=== PATIENT | male | born 1995 | race American Indian/Alaskan Native ===

== ENCOUNTER 2017-09-13 14:34 | Emergency (ER) | payer SELFPAY ==
--- NOTE | 2017-09-13 23:38 | Emergency Department Report ---
ED Laceration HPI - HPI Chief Complaint: Wound/Laceration Stated Complaint: FALL/BUSTED LIP Time Seen by Provider: 09/13/17 23:05 Occurred When: Yesterday Severity: mild (no pain) Tetanus Status: Up to Date (2 years ago) Laceration Symptoms: No Foreign Body Sensation, No Numbness, No Weakness, No Pain Other History: Patient reports that he fell and cut his lower lip yesterday night. Patient with delayed wound. Denies any pain. Tetanus vaccine is up-to- date. Patient stable. Denies any missing tooth. ED Review of Systems ROS: Stated complaint: FALL/BUSTED LIP Other details as noted in HPI Comment: All other systems reviewed and negative Constitutional: no symptoms reported ENT: denies: ear pain, epistaxis, congestion Respiratory: no symptoms reported Cardiovascular: denies: chest pain, palpitations, dyspnea on exertion, edema, syncope, paroxysmal nocturnal dyspnea Gastrointestinal: denies: abdominal pain, nausea, vomiting Musculoskeletal: denies: back pain, joint swelling, arthralgia, myalgia Skin: other (reports cut to his lower lip where he fell last night) Neurological: denies: headache, numbness, paresthesias, abnormal gait ED Past Medical Hx - Past Medical History Previous Medical History?: No - Surgical History Past Surgical History?: No - Family History Family history: no significant - Social History Smoking Status: Never Smoker Substance Use Type: None - Medications Home Medications: Home Medications Medication Instructions Recorded Confirmed Last Taken Type Cephalexin [Keflex] 500 mg PO Q8HR 7 Days #21 cap 09/14/17 Unknown Rx Laceration Physical Exam - Exam General: Vital signs noted. No distress. Alert and acting appropriately. This is a 22-year-old male well-nourished well-developed in no acute distress. Head: Normocephalic atraumatic. No contusion, abrasion or laceration to head. Mouth: Noted small laceration that already healing in with scab to outer lower lip. No signs of infection noted. Noted inner lower lip with small laceration which is superficial. Mouth is moist, tongue is normal, no dental trauma, uvula is midline and oral airways patent. Patient able to open and close his mouth and a difficulties Lungs: Clear to auscultation bilaterally, no rhonchi wheezes or rales Extremity: No clubbing, cyanosis or edema +2 pulses to all extremities. No neurovascular compromise Psych: Normal mood and behavior. Wound Length (cm): 0 (0.1 cm laceration that sorry scabbed over.) Laceration Location: Other (lower lip externally. Inner lower lip with small superficial laceration) Laceration Exam: Yes Normal Distal CMS, No Foreign Body, No Exposed Tendon, Vessel, or Nerve, No Tendon Injury ED Course Vital Signs 09/13/17 16:04 Temperature 98.8 F Pulse Rate 64 Respiratory 16 Rate Blood Pressure 113/70 O2 Sat by Pulse 100 Oximetry - Reevaluation(s) Reevaluation #1: 09/13/17 23:58 Laceration to the outer lip cleansed with normal saline and Neosporin ointment placed inside. - Procedure Description Procedures done: Wound to lip cleansed with iodine and ns and NS oint placed. Patient with delayed treatment. TD vaccine 2016. ED Medical Decision Making - Medical Decision Making ED course: status post fall with laceration to his outer lower lip that started healing. Patient with laceration to the inner lower lip and outer lip with delayed treatment. Area is cleansed with normal saline and Neosporin ointment placed inside. I discussed the patient I'll place him on antibiotic but we cannot repair laceration to his outer lip became is it has been greater than 15 hours. Areas already scabbed over and hemostasis. Patient does not appear to be happy with information given. I explained to him that the wound is already healing and therefore I take the scab off and so the ear up he runs a risk of having an infection and the wound is very small and already healing so he needs to keep area clean and dry and I will put him on antibiotic. Tetanus vaccine is up-to-date. Patient discharged home in stable condition with prescription for Keflex and to follow-up with behavioral specialist in 2-3 days Critical care attestation.: If time is entered above; I have spent that time in minutes in the direct care of this critically ill patient, excluding procedure time. ED Disposition Clinical Impression: Laceration of lip with delay in treatment Qualifiers: Encounter type: initial encounter Qualified Code(s): S01.511A - Laceration without foreign body of lip, initial encounter Accidental fall Qualifiers: Encounter type: initial encounter Qualified Code(s): W19.XXXA - Unspecified fall, initial encounter Disposition: DC-01 TO HOME OR SELFCARE Is pt being admited?: No Does the pt Need Aspirin: No Condition: Stable Instructions: Laceration (ED), Acute Wound Care (ED) Additional Instructions: Please keep affected area clean and dry Follow-up with behavioral specialist/primary care physician in 2-3 days if he do not have either you can follow-up with outside Medical Center. We are not able to suture your wound to the lip because you presented to the emergency room to light and timeframe does not allow me to repair laceration. The area is scabbed over. Take antibiotic as prescribed. Please keep affected ear clean and dry and follow discharge instructions on acute wound care Prescriptions: Cephalexin [Keflex] 500 mg PO Q8HR 7 Days #21 cap Referrals: JOAQUIN VAZQUEZ MD [Primary Care Provider] - 09/14/17 MICHAEL ASKEW MD [Staff Physician] - 09/14/17 [facility] [Outside] - 09/14/17 Forms: Accompanied Note, Work/School Release Form(ED)
[2017-09-13] MEDS ORDERED: TRIPLE ANTIBIOTIC TP ONE (23:52)
[2017-09-14 05:57] VITALS: BP 103/60
== END 2017-09-14 00:13 | disposition home or self-care (01) ==
LOC: ED 14:34
DX: S01.511A Laceration without foreign body of lip, initial encounter (principal); W18.30XA Fall on same level, unspecified, initial encounter; Y93.89 Activity, other specified; Y92.89 Other specified places as the place of occurrence of the external cause; Y99.8 Other external cause status
CPT/HCPCS: 99282; A6250

== ENCOUNTER 2019-10-14 06:02 | Emergency (ER) | payer SELFPAY ==
[2019-10-14 06:16] VITALS: BP 124/79
--- NOTE | 2019-10-14 07:51 | Emergency Department Report ---
Chief Complaint: Back Pain/Injury Stated Complaint: SOB BACK PAIN LT ARM PAIN LUMPS ON NECK AND GROIN Time Seen by Provider: 10/14/19 07:25 - HPI History of Present Illness: This 24-year-old male who presents the ED complaining of lymph nodes enlargement that has been going on for the past year. Patient states that last November he was evaluated by some other ER had a biopsy of the lymph nodes done. Patient states that it was benign and was told that the lymph nodes were benign and not malignant. Patient states that the lymph nodes gotten bigger and they are not reducing in size. Patient denies any pain, fever, nausea vomiting, abdominal pain, chest pain or any other medical problems. Patient states that the lymph nodes are swelling on the back of his neck and one in the groin area. - ROS Review of Systems: As noted in HPI - Exam Vital Signs: Vital Signs 10/14/19 06:10 Temperature 98.3 F Pulse Rate 62 Respiratory 18 Rate Blood Pressure 124/79 O2 Sat by Pulse 98 Oximetry Physical Exam: GENERAL: Alert and oriented x3, no apparent distress, Normal Gait, atraumatic. HEAD: Head is normocephalic and a-traumatic. MOUTH:Mouth is well hydrated and without lesions. Tonsils nonerythematous or swollen, Uvula midline, Tongue not elevated. NECK: Supple. Non edematous, No thyromegaly. No C-spine tenderness. Posterior cervical bilateral lymph nodes swelling, nontender to palpation NEUROLOGIC: The patient is cooperative with no focal neurologic deficits. SKIN: Warm and dry, No lesions, No ulceration or induration present. MSE screening note: Focused history and physical exam performed. Due to findings the following was ordered: ED Medical Decision Making - Medical Decision Making 24-year-old healthy looking male presents with enlarged lymph nodes for the past year. Patient stated that he had lymph nodes biopsied last year November which were normal. Discussed with the patient that he needs to follow-up with a specialist who will do a biopsy and possibly have them surgically removed with the common problem. I discussed with the patient that he will be given referrals for the right resources to be able to better manage his concerns for his lymph nodes. Vital signs are normal patient is in no acute distress or respiratory distress. ED Disposition for MSE Clinical Impression: Lymph node enlargement Disposition: Z-07 MED SCREENING EXAM-LEFT Is pt being admited?: No Does the pt Need Aspirin: No Condition: Stable Instructions: Lymphedema (ED), Lymphangitis (ED) Additional Instructions: Make sure to follow up with the primary care physician as discussed. Take all your medications as you've been prescribed. If you have any worsening symptoms or develop new symptoms please return to ED immediately. Referrals: PRIMARY CARE, [Primary Care Provider] - 3-5 Days [facility] [Provider Group] - 3-5 Days [facility] [Provider Group] - 3-5 Days [facility] [Provider Group] - 3-5 Days [facility] [Provider Group] - 3-5 Days [facility] [Provider Group] - 3-5 Days [facility] [Provider Group] - 3-5 Days [facility] [Provider Group] - 3-5 Days [facility] [Outside] - 3-5 Days [facility] [Outside] - 3-5 Days Forms: Work/School Release Form(ED) Time of Disposition: 07:51
== END 2019-10-14 07:59 | disposition left against medical advice (07) ==
LOC: ED 06:02
DX: R59.9 Enlarged lymph nodes, unspecified (principal)
CPT/HCPCS: 99282

== ENCOUNTER 2020-04-17 14:41 | Observation (INO) | payer OTHER ==
--- NOTE | 2020-04-17 17:06 | Event Note ---
ED Screening Note Date of service: 04/17/20 Time: 17:05 ED Screening Note: Patient here for admission for secondary syphilis Was seen here last night, however declined admission due to having to take his mother to work HIV positive not currently on medication Labs performed last night This initial assessment/diagnostic orders/clinical plan/treatment(s) is/are subject to change based on patients health status, clinical progression and re- assessment by fellow clinical providers in the ED. Further treatment and workup at subsequent clinical providers discretion. Patient/guardian urged not to elope from the ED as their condition may be serious if not clinically assessed and managed. Initial orders include:
[2020-04-17] MEDS ORDERED: diphenhydrAMINE 50 MG/ML VIAL IV ONE (23:36)
--- NOTE | 2020-04-17 23:40 | Emergency Department Report ---
- General Chief complaint: Skin Rash Stated complaint: RASH Time Seen by Provider: 04/17/20 17:03 Source: patient Mode of arrival: Ambulatory Limitations: No Limitations - History of Present Illness Initial comments: 24-year-old male HIV positive not currently on antiretrovirals presents to the hospital complaining of worsening generalized rash despite treatment for syphilis. Patient has had a rash x2 weeks but did not receive a diagnosis of syphilis until April 16. Patient presented to [facility] on April 12 and had blood drawn on 04/12 that resulted positive for syphilis antibody IgG and IgM as well as reactive RPR. Patient received the results 04/16 but he received a shot of IM penicillin on April 12 while results were pending. Patient now comes in stating that despite receiving treatment the rash is spreading to additional body areas and becoming more irritated and burning feeling. Patient was diagnosed with HIV early 2018 and started HIV medication. Patient has been noncompliant with this medication since the end of 2018. He denies diagnosis of full-blown AIDS but does not know his current CD4 count. He has an appointment scheduled with the HIV doctor to initiate care and treatment for April 18. Patient was seen here yesterday with recommendation for admission. Patient declined admission at that time because he had some personal affairs to handle. He returned to the ER today for admission and treatment. He complains burning itching pain to several areas of his rash on his back pain. He denies fever, headache, dysuria, penile discharge or dysuria. - Related Data Previous Rx's Medication Instructions Recorded Last Taken Type Acetaminophen [Acetaminophen TAB] 650 mg PO Q4H PRN tablet 04/18/20 Unknown Rx Allergies Allergy/AdvReac Type Severity Reaction Status Date / Time No Known Allergies Allergy Verified 09/13/17 16:07 Abscess Boil HPI - HPI Chief Complaint: Skin Rash Stated Complaint: RASH Time Seen by Provider: 04/17/20 17:03 Home Medications: Previous Rx's Medication Instructions Recorded Last Taken Type Acetaminophen [Acetaminophen TAB] 650 mg PO Q4H PRN tablet 04/18/20 Unknown Rx Allergies/Adverse Reactions: Allergies Allergy/AdvReac Type Severity Reaction Status Date / Time No Known Allergies Allergy Verified 09/13/17 16:07 ED Review of Systems ROS: Stated complaint: RASH Other details as noted in HPI Comment: All other systems reviewed and negative ED Past Medical Hx - Past Medical History Hx Asthma: Yes Hx HIV: Yes - Surgical History Additional Surgical History: Biopsy lymph node in left groin (neg) - Social History Smoking Status: Never Smoker Substance Use Type: None - Medications Home Medications: Home Medications Medication Instructions Recorded Confirmed Last Taken Type Acetaminophen [Acetaminophen TAB] 650 mg PO Q4H PRN tablet 04/18/20 Unknown Rx ED Physical Exam - General Limitations: No Limitations - Other Other exam information: General: No acute distress Head: Atraumatic Eyes: normal appearance ENT: Moist mucous membranes, no oral thrush noted Neck: Normal appearance, no midline tenderness Chest: Clear to auscultation bilaterally CV: Regular rate and rhythm Abdomen: Soft, normal bowel sounds, nontender, nondistended, no rebound or guarding Back: Normal inspection Extremity: Normal inspection, full range of motion Neuro: Alert O x 3, no facial asymmetry, speech clear, no gross motor sensory deficit Psych: Appropriate behavior Skin: Generalized macular papular rash to trunk, arms, legs, and neck that is actually spares the palms and soles ED Course Vital Signs 04/17/20 04/17/20 04/17/20 15:16 23:08 23:32 Temperature 98.2 F 98.3 F Pulse Rate 60 64 Respiratory 16 16 16 Rate Blood Pressure 109/67 Blood Pressure 120/54 [Right] O2 Sat by Pulse 99 100 Oximetry 04/18/20 00:46 Temperature 98.6 F Pulse Rate 78 Respiratory 16 Rate Blood Pressure Blood Pressure 102/63 [Right] O2 Sat by Pulse 100 Oximetry ED Medical Decision Making - Lab Data Result diagrams: 04/18/20 00:15 04/18/20 00:15 - Medical Decision Making Patient presents to the hospital with worsening rash despite outpatient treatment with IM penicillin for secondary syphilis. Patient is also immunocompromised due to HIV noncompliant with antiretrovirals. Case was discussed with on-call infectious disease doctor (Dr. Pineda) yesterday who recommended penicillin 4,000,000 units every 4 hours IV. Patient returns today for admission and antibiotics initiated in the ED. UA from yesterday also shows increased WBC count. I have ordered a repeat urine collection, urine culture, and GC chlamydia culture from urine with urine collection pending at disposition. Antibiotics and Benadryl provided in the ED Critical Care Time: No Critical care attestation.: If time is entered above; I have spent that time in minutes in the direct care of this critically ill patient, excluding procedure time. 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
[2020-04-17] MEDS ORDERED: PENICILLIN G POTASSIUM 5 MIL UNITS INJ IV SCH (23:45)
[2020-04-18] MEDS ORDERED: SODIUM CHLORIDE 0.9% 1000 ML 1,000 ML IV ONE (00:12)
[2020-04-18] MEDS: PENICILLIN G POTASSIUM 4 MIL.UNITS in SODIUM CHLORIDE 0.9% 50 ML IV SCH ×4 (00:13→13:10)
[2020-04-18 00:36] LABS: Bilirubin,Urine NEG (Negative); Blood,Urine NEG (Negative); Color,Urine Yellow (Yellow); Mucus,Urine FEW /HPF
[2020-04-18 00:54] LABS: Protein,Urine >500 mg/dL (Negative)
[2020-04-18] MEDS ORDERED: MAGNESIUM HYDROXIDE (MOM) ORAL LIQD UDC PO PRN (00:54)
[2020-04-18] MEDS ORDERED: ACETAMINOPHEN 325 MG TAB PO PRN (00:54)
[2020-04-18] MEDS ORDERED: ONDANSETRON 4 MG/2 ML INJ IV PRN (00:54)
[2020-04-18 00:59] LABS: Hematocrit 30.8 % (35.5-45.6); Hemoglobin 10.4 gm/dl (11.8-15.2); Mean Corpuscular HGB Conc 34 % (32-34); Mean Corpuscular Volume 87 fl (84-94); Platelet Count 269 K/mm3 (140-440); Red Blood Count 3.56 M/mm3 (3.65-5.03); Red Cell Distribution Width 13.2 % (13.2-15.2)
[2020-04-18 01:16] LABS: Blood Urea Nitrogen 6 mg/dL (9-20); Calcium 8.8 mg/dL (8.4-10.2); Hemolysis Index 4
--- NOTE | 2020-04-18 01:16 | History and Physical Report ---
History of Present Illness Date of examination: 04/18/20 Date of admission: 04/18/20 00:11 Chief complaint: Generalized body rash History of present illness: 24-year-old -[place] male with known history of HIV with unknown CD4 count presents to the emergency room with worsening generalized body rash. Patient has had rash for about 2 weeks and was diagnosed with syphilis at [facility]. Patient had the test done on April 12 and got the report on over 17. He received an injection of IM penicillin on April 12 while results were pending. Patient now indicates that generalized rash is getting worse and he has been having some itching as well. He has also had some burning sensation. Was diagnosed with HIV in 2019 and was on medication for some time however patient has not been compliant with his medication since the end of 2018. He heredia s not followed up with any physician and does not know his CD4 count. Patient was seen in the emergency room yesterday and admission was recommended at that time but patient declined to be admitted. Denies any fever or chills, no chest pain or shortness of breath, no nausea vomiting, no hematuria or dysuria. Infectious disease was consulted by the ER physician and recommendation was to start patient on penicillin. Past History Past Medical History: other (HIV positive,Asthma) Past Surgical History: Other (Left inguinal LN biopsy) Social history: no significant social history Family history: no significant family history Medications and Allergies Allergies Allergy/AdvReac Type Severity Reaction Status Date / Time No Known Allergies Allergy Verified 09/13/17 16:07 Home Medications Medication Instructions Recorded Confirmed Last Taken Type cephALEXin [Keflex] 500 mg PO Q8HR 7 Days #21 cap 09/14/17 Unknown Rx Active Meds: Active Medications Acetaminophen (Tylenol) 650 mg PO Q4H PRN PRN Reason: Pain MILD(1-3)/Fever >100.5/HEREDIA Enoxaparin Sodium (Enoxaparin) 40 mg SUB-Q QDAY@2200 ALESSANDRO Penicillin G Potassium 4 mil. (units/ Sodium Chloride) 50 mls @ 100 mls/hr IV Q4H [facility] Last Admin: 04/18/20 00:13 Dose: 100 mls/hr Documented by: Sodium Chloride (Nacl 0.9% 1000 Ml) 1,000 mls @ 999 mls/hr IV BOLUS ONE Stop: 04/18/20 01:12 Last Admin: 04/18/20 00:19 Dose: 999 mls/hr Documented by: Magnesium Hydroxide (Milk Of Magnesia) 30 ml PO Q4H PRN PRN Reason: Constipation Ondansetron HCl (Zofran) 4 mg IV Q8H PRN PRN Reason: Nausea And Vomiting Sodium Chloride (Sodium Chloride Flush Syringe 10 Ml) 10 ml IV BID ALESSANDRO Sodium Chloride (Sodium Chloride Flush Syringe 10 Ml) 10 ml IV PRN PRN PRN Reason: LINE FLUSH Review of Systems Constitutional: no fever, no chills Ears, nose, mouth and throat: no nasal congestion, no sore throat Cardiovascular: no chest pain, no palpitations Respiratory: no cough, no shortness of breath Gastrointestinal: no abdominal pain, no nausea, no vomiting, no diarrhea Genitourinary Male: no dysuria, no hematuria, no flank pain Musculoskeletal: no neck pain, no low back pain Integumentary: rash, pruritis, no jaundice Neurological: no headaches, no confusion Psychiatric: no anxiety, no depression Exam - Constitutional Vitals: Temp Pulse Resp BP Pulse Ox 98.6 F 78 16 102/63 100 04/18/20 00:46 04/18/20 00:46 04/18/20 00:46 04/18/20 00:46 04/18/20 00:46 General appearance: Present: no acute distress, well-nourished - EENT Eyes: Present: PERRL, EOM intact. Absent: scleral icterus ENT: hearing intact, clear oral mucosa, dentition normal - Neck Neck: Present: supple, normal ROM - Respiratory Respiratory effort: normal Respiratory: bilateral: CTA - Cardiovascular Rhythm: regular Heart Sounds: Absent: S1 & S2, gallop, systolic murmur, diastolic murmur, rub - Extremities Extremities: no ischemia, pulses intact, pulses symmetrical, No edema, Full ROM Peripheral Pulses: within normal limits - Abdominal General gastrointestinal: Present: soft, non-tender, non-distended, normal bowel sounds. 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 (2) HIV (human immunodeficiency virus infection) Current Visit: Yes Status: Acute Plan to address problem: Patient diagnosed with HIV in 2019. He has not been compliant with his medication. CD4 count unknown. We will await further recommendation from infectious disease. (3) DVT prophylaxis Current Visit: Yes Status: Acute Plan to address problem: Patient placed on subcutaneous Lovenox. (4) Full code status Current Visit: Yes Status: Acute
[2020-04-18 01:27] LABS: BUN/Creatinine Ratio 9
[2020-04-18 07:00] LABS: Band Neutrophils # (Manual) 0.1 K/mm3; Basophils % (Manual) 0 % (0.0-1.8); Total Cells Counted 100
[2020-04-18 07:01] LABS: Hypochromasia Rare; Platelet Estimate Consistent w Auto
--- NOTE | 2020-04-18 12:48 | Consultation ---
History of Present Illness - Reason for Consult Consult date: 04/18/20 Rash, syphilis, HIV Requesting physician: ANNITA WHIPPLE - History of Present Illness The patient is a 24-year-old male with diagnosis of HIV in December 2018, has not been on antiretroviral therapy came into the emergency room initially on 04/16 and then again on 04/17 due to generalized rash. He was diagnosed with syphilis as an outpatient and got IM penicillin on 04/12/2020. He was experiencing burnin g at the rash and hence came to the hospital. No fever, chills. No headaches. No nausea, vomiting or diarrhea. Denies any penile discharge. Denies IVDU. Reports MSM behavior. Denies any visual changes. Review of Systems: General: no fevers,chills or rigors HEENT: no new visual disturbance Respiratory: No cough, sputum, hemoptysis or shortness of breath Cardiovascular: No chest pain, syncope Gastrointestinal: No nausea, vomiting or diarrhea Genitourinary: No dysuria or hematuria Musculoskeletal: No new or worsening neck pain or back pain Neurologic: No headaches, seizures Hematologic: No easy bruising or bleeding Endocrine: No night sweats or acute weight loss Skin: Positive for rash, no jaundice Psychiatric: No suicidal or homicidal ideation Past History Past Medical History: other (HIV positive,Asthma) Past Surgical History: Other (Left inguinal LN biopsy) Social history: no significant social history Family history: no significant family history Medications and Allergies Allergies Allergy/AdvReac Type Severity Reaction Status Date / Time No Known Allergies Allergy Verified 09/13/17 16:07 Home Medications Medication Instructions Recorded Confirmed Last Taken Type cephALEXin [Keflex] 500 mg PO Q8HR 7 Days #21 cap 09/14/17 04/18/20 Unknown Rx Active Meds: Active Medications Acetaminophen (Tylenol) 650 mg PO Q4H PRN PRN Reason: Pain MILD(1-3)/Fever >100.5/HEREDIA Enoxaparin Sodium (Enoxaparin) 40 mg SUB-Q QDAY@2200 ALESSANDRO Penicillin G Potassium 4 mil. (units/ Sodium Chloride) 50 mls @ 100 mls/hr IV Q4H PENDING SALE TO [facility] Last Admin: 04/18/20 08:16 Dose: 100 mls/hr Documented by: Magnesium Hydroxide (Milk Of Magnesia) 30 ml PO Q4H PRN PRN Reason: Constipation Ondansetron HCl (Zofran) 4 mg IV Q8H PRN PRN Reason: Nausea And Vomiting Sodium Chloride (Sodium Chloride Flush Syringe 10 Ml) 10 ml IV BID ALESSANDRO Last Admin: 04/18/20 10:22 Dose: 10 ml Documented by: Sodium Chloride (Sodium Chloride Flush Syringe 10 Ml) 10 ml IV PRN PRN PRN Reason: LINE FLUSH Physical Examination - Physical Exam Narrative exam: Physical Exam: Constitutional: Alert, cooperative. No acute distress Head, Ears, Nose: Normocephalic, atraumatic. External ears, nose normal Eyes: Conjunctivae/corneas clear. No icterus. No ptosis. Neck: Supple, no meningeal signs Cardiovascular: S1, S2 normal. Respiratory: Good air entry, clear to auscultation bilaterally GI: Soft, non-tender; bowel sounds normal. No peritoneal signs Musculoskeletal: No pedal edema, no cyanosis. Skin: Diffuse macular rash on the trunk Hem/Lymphatic: No palpable cervical or supraclavicular nodes. No lymphangitis Psych: Mood ok. Affect normal Neurological: Awake, alert, oriented. No gross abnormality - Constitutional Vitals: Vital Signs Temp Pulse Resp BP Pulse Ox 98.0 F 55 L 16 106/62 99 04/18/20 08:50 04/18/20 08:50 04/18/20 08:50 04/18/20 08:50 04/18/20 08:50 Temperature -Last 24 Hours Temperature 98.0 F Temperature 97.9 F Temperature 98.6 F Temperature 98.3 F Temperature 98.2 F Results - Labs CBC & Chem 7: 04/18/20 00:15 04/18/20 00:15 Labs: Abnormal lab results 04/18/20 04/18/20 04/18/20 Range/Units 00:03 00:15 00:15 WBC 4.1 L (4.5-11.0) K/mm3 RBC 3.56 L (3.65-5.03) M/mm3 Hgb 10.4 L (11.8-15.2) gm/dl Hct 30.8 L (35.5-45.6) % Lymphocytes % (Manual) 40.0 H (13.4-35.0) % Monocytes % (Manual) 9.0 H (0.0-7.3) % BUN 6 L (9-20) mg/dL Creatinine 0.7 L (0.8-1.3) mg/dL Glucose 73 L (75-100) mg/dL Urine WBC (Auto) 13.0 H (0.0-6.0) /HPF Assessment and Plan A/P: 24-year-old male with diagnosis of HIV in December 2018, has not been on antiretroviral therapy: #Generalized rash, secondary syphilis: [facility] on 04/12/2020 with IM 2.4 million units of benzathine penicillin. 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 Based on timing of IM benzathine penicillin administration, Jarisch-Herxheimer reaction seems unlikely. Also, no symptoms to suggest neurosyphilis. Patient feels well and wants to go home. #HIV: Not on treatment. Unknown viral load and CD4 count. Has established care with the [facility], waiting to restart ARVs. Recs: Okay for discharge from ID standpoint Patient to follow-up with the [facility] for initiation of ARVs D/W Dr. Shah. Amarilys Gallegos MD, FACP [facility] C: [phone] O: [phone] F: [phone]
--- NOTE | 2020-04-18 16:04 | Discharge Summary ---
Providers - Providers Date of Admission: 04/18/20 00:11 Date of discharge: 04/18/20 Attending physician: MELINDA DAVIS 04/18/20 00:07 Consult to Physician [CONS] Urgent Comment: Consulting Provider: ISAAK PALMA Physician Instructions: Reason For Exam: secondary syphilis failed outpatient tx, hiv + Primary care physician: [employer] Hospitalization Condition: Stable Hospital course: 24-year-old male recently diagnosed with HIV in December. Is under the care of infectious disease doctor. Patient presented with a rash was found to be positive for syphilis. Patient rash consistent with typical secondary syphilis rash. Patient is already being treated with the health department with 2,400,000 units of penicillin. Patient stable to be discharged and follow-up with his infectious disease doctor for continued treatment of HIV disease. Disposition: TO HOME OR SELFCARE - Discharge Diagnoses (1) HIV (human immunodeficiency virus infection) Status: Acute (2) Secondary syphilis in male Status: Acute Core Measure Documentation - Palliative Care Palliative Care/ Comfort Measures: Not Applicable - Core Measures Any of the following diagnoses?: none Exam - Constitutional Vitals: Temp Pulse Resp BP Pulse Ox 98.0 F 55 L 16 106/62 99 04/18/20 08:50 04/18/20 08:50 04/18/20 08:50 04/18/20 08:50 04/18/20 08:50 General appearance: Present: no acute distress, well-nourished - EENT Eyes: Present: PERRL ENT: hearing intact, clear oral mucosa - Neck Neck: Present: supple, normal ROM - Respiratory Respiratory effort: normal Respiratory: bilateral: CTA - Cardiovascular Heart Sounds: Present: S1 & S2. Absent: rub, click - Extremities Extremities: pulses symmetrical, No edema Peripheral Pulses: within normal limits - Abdominal General gastrointestinal: Present: soft, non-tender, non-distended, normal bowel sounds Male genitourinary: Present: normal - Integumentary Integumentary: Present: clear, warm, dry Body Four View: 1 - Skin rash all over consistent with secondary syphilis. 2 - Skin rash secondary syphilis. - Musculoskeletal Musculoskeletal: gait normal, strength equal bilaterally - Psychiatric Psychiatric: appropriate mood/affect, intact judgment & insight - Neurologic Neurologic: CNII-XII intact, moves all extremities Plan Activity: no restrictions Weight Bearing Status: Full Weight Bearing Diet: regular Forms: Discharge Signature Page
[2020-04-18 17:04] VITALS: BP 108/55
[2020-04-18] MEDS ORDERED: ENOXAPARIN 40 MG/0.4 ML INJ SUB-Q SCH (22:00)
== END 2020-04-18 17:49 | disposition home or self-care (01) ==
LOC: ED 14:41 → 3A 04-18 00:11 → 4A 04-18 00:31
PROVIDERS: ADMIT Internal Medicine Geriatric Medicine; ATTEND Internal Medicine
DX: A51.49 Other secondary syphilitic conditions (principal); J45.909 Unspecified asthma, uncomplicated; Z71.6 Tobacco abuse counseling; Z79.899 Other long term (current) drug therapy
CPT/HCPCS: 36415; 80048; 81001; 85007; 85025; 87086; 87591; 96365; 96366; 96375; 99284; 99406; G0378; J1200; J2540; J7030